=== PATIENT | female | born 1950 | race Caucasian/White ===

== ENCOUNTER → 2016-04-01 | Outpatient (CLI) | payer OTHER ==
[~2016-04-01] MED LIST: ACTOS30 MG PO; ALDOMET500 MG PO; ALPRAZOLAM0.5 MG PO; ASPIR-LOW81 MG PO; ASPIRIN EC325 MG PO; Apresoline PO; BENICAR PO; BYSTOLIC PO; Benicar PO; Bystolic PO; CALCIUM + D3 E1 EACH PO; CALCIUM600 M1 PO; CEFUROXIME250 MG PO; CLEOCIN300 MG PO; CLONIDINE HCL0.1 MG PO; CYANOCOBALAM1000 MCG PO; DOCUSATE SODIU100 MG PO; FUROSEMIDE20 MG PO; GLIPIZIDE XL10 MG PO; GLUCOPHAGE500 MG PO; GLUCOTROL XL10 MG PO; Glucophage PO; HYDROCHLOROTHIA25 MG PO; Hydrodiuril,Oretic,E PO; LEVAQUIN PO; LEVOTHYROXINE112 MCG PO; LEVOTHYROXINE88 MCG PO; LISINOPRIL40 MG PO; Levaquin PO; Levothroid,Synthroid PO; MAALOX ADVANCE355 ML PO; MAGNESIUM GLUCO30 MG PO; MAGNESIUM200 MG PO; MAGNESIUM250 MG PO; METFORMIN HCL500 MG PO; METFORMIN PO; METOPROLOL SUC100 MG PO; METOPROLOL SUCC50 MG PO; MULTIVITAMIN1 EAC2 PO; NATURAL BALANCE15 M1 BOTH EYES; NORCO 5/3251 TABLET PO; OMEPRAZOLE PO; OMEPRAZOLE20 MG PO; OMEPRAZOLE40 M1 PO; PANTOPRAZOLE SO40 MG PO; PLAVIX PO; PLAVIX75 MG PO; PriLOSEC PO; SIMVASTATIN PO; SIMVASTATIN80 MG PO; SYNTHROID PO; TOPROL XL50 MG PO; TUMS500 MG PO; Tums,OsCal PO; XANAX0.5 MG PO; ZESTRIL40 MG PO; ZOCOR80 MG PO; ZOFRAN ODT4 MG PO; Zocor PO
== END | disposition home or self-care (01) ==
LOC: RAD 12:28
DX: C34.90 Malignant neoplasm of unspecified part of unspecified bronchus or lung (principal)
CPT/HCPCS: 71250

== ENCOUNTER 2016-05-08 05:04 | Inpatient (IN) | payer OTHER ==
[~2016-05-08] VITALS: Ht 167.6 cm; Wt 89.7 kg
[2016-05-08 06:12] LABS: CHLORIDE 103 mEq/L (99-109); POTASSIUM 3.3 mEq/L (3.7-5.4); SODIUM 135 mEq/L (136-147)
[2016-05-08 06:14] LABS: GLUCOSE 257 mg/dL (70-99); HEMATOCRIT 24.5 % (36.0-46.0); MCH 28.9 PG (29.0-34.0); MCHC 34.3 G/DL (30.0-36.0); MCV 84.2 FL (83-99); PLATELET COUNT 53 K/uL (156-360); RBC DIS.WIDTH-CV 14.3 % (11.8-14.6); RBC DIS.WIDTH-SD 41.9 % (39-53); RED BLOOD COUNT 2.91 M/uL (3.80-5.20)
[2016-05-08 06:16] LABS: ANION GAP 13 MEQ/L (2-14); TOTAL BILIRUBIN 0.5 mg/dL (0.0-1.0)
[2016-05-08 06:18] LABS: ALKALINE PHOSPHATASE 128 IU/L (3-129); GFR ESTIMATE (CALCULATED) 26 mL/min/
[2016-05-08 06:19] LABS: UREA NITROGEN (BUN) 48 mg/dL (9-23)
[2016-05-08 06:22] LABS: LIPASE 9 U/L (1.0-51.0)
[2016-05-08 13:18] VITALS: BP 126/61
[2016-05-08 16:34] LABS: POINT-OF-CARE METER ID UU13113725
[2016-05-08 16:42] VITALS: BP 98/63
[2016-05-08 18:12] LABS: INTERNAL CONTROL VALID? YES
[2016-05-08 23:06] VITALS: BP 120/58
[2016-05-09 07:24] LABS: ALKALINE PHOSPHATASE 91 IU/L (3-129); ANION GAP 10 MEQ/L (2-14); CHLORIDE 112 MEQ/L (99-109); POTASSIUM 3.6 MEQ/L (3.7-5.4); SAMPLE HEMOLYSIS CHECK 0; SAMPLE ICTERIC CHECK 0; SAMPLE LIPEMIA CHECK 0; SODIUM 140 MEQ/L (136-147); TOTAL BILIRUBIN 0.3 MG/DL (0.0-1.0); UREA NITROGEN (BUN) 34 mg/dL (9-23)
[2016-05-09 07:25] LABS: GFR ESTIMATE (CALCULATED) 43 mL/min/; GLUCOSE 113 mg/dL (70-99)
[2016-05-09 07:41] LABS: HEMATOCRIT 24.3 % (36.0-46.0); MCH 28.6 PG (29.0-34.0); MCHC 33.3 G/DL (30.0-36.0); MCV 86.9 FL (83-99); RBC DIS.WIDTH-CV 14.6 % (11.8-14.6); RBC DIS.WIDTH-SD 46.3 % (39-53); RED BLOOD COUNT 2.83 M/uL (3.80-5.20)
[2016-05-09 07:43] LABS: WHITE BLOOD COUNT 1.2 K/uL (4.1-10.2)
[2016-05-09 08:31] LABS: MEAN PLAT.VOLUME 10.7 uM^3 (9.5-12.4); PLATELET COUNT 46 K/uL (156-360)
[2016-05-09 10:28] VITALS: BP 121/68
[2016-05-09 15:24] VITALS: BP 128/62
[2016-05-09 21:14] LABS: C DIFF TOXIN NEGATIVE (NEGATIVE)
[2016-05-09 21:17] LABS: PROBE CHECK PASS; SPECIMEN PROCESSING CONTROL PASS
[2016-05-09 23:05] VITALS: BP 169/78
[2016-05-10 07:50] VITALS: BP 172/114
[2016-05-10 08:18] LABS: HEMATOCRIT 23.4 % (36.0-46.0); MCH 29.2 PG (29.0-34.0); MCHC 33.8 G/DL (30.0-36.0); MCV 86.3 FL (83-99); MEAN PLAT.VOLUME 10.4 uM^3 (9.5-12.4); PLATELET COUNT 51 K/uL (156-360); RBC DIS.WIDTH-CV 14.6 % (11.8-14.6); RBC DIS.WIDTH-SD 45.7 % (39-53); RED BLOOD COUNT 2.71 M/uL (3.80-5.20)
[2016-05-10 08:36] LABS: ALKALINE PHOSPHATASE 82 IU/L (3-129); ANION GAP 10 MEQ/L (2-14); CHLORIDE 113 MEQ/L (99-109); GFR ESTIMATE (CALCULATED) 43 mL/min/; POTASSIUM 4.2 MEQ/L (3.7-5.4); SAMPLE HEMOLYSIS CHECK 0; SAMPLE ICTERIC CHECK 0; SAMPLE LIPEMIA CHECK 0; SODIUM 138 MEQ/L (136-147); UREA NITROGEN (BUN) 34 mg/dL (9-23)
[2016-05-10 08:37] LABS: GLUCOSE 260 mg/dL (70-99); TOTAL BILIRUBIN 0.4 MG/DL (0.0-1.0)
[2016-05-10 08:46] LABS: WHITE BLOOD COUNT 0.5 K/uL (4.1-10.2)
[2016-05-10 09:44] LABS: HEMATOLOGY COMMENT 1 DIFF ON BUFFY COAT
[2016-05-10 09:48] LABS: ABS NEUTROPHIL COUNT 0.27; EOSINOPHIL ABS CT 0.01; PLAT.SUFFICIENCY DECREASED
[2016-05-10 15:35] VITALS: BP 169/94
[2016-05-11] VITALS (24 sets, daily range): BP systolic 68–165; BP diastolic 37–84
[2016-05-11 07:14] LABS: ALKALINE PHOSPHATASE 66 IU/L (3-129); ANION GAP 13 MEQ/L (2-14); CHLORIDE 117 MEQ/L (99-109); GFR ESTIMATE (CALCULATED) 37 mL/min/; GLUCOSE 293 mg/dL (70-99); POTASSIUM 3.5 MEQ/L (3.7-5.4); SAMPLE HEMOLYSIS CHECK 0; SAMPLE ICTERIC CHECK 0; SAMPLE LIPEMIA CHECK 0; SODIUM 138 MEQ/L (136-147); TOTAL BILIRUBIN 0.4 MG/DL (0.0-1.0); UREA NITROGEN (BUN) 33 mg/dL (9-23)
[2016-05-11 07:24] LABS: CARBOXY HGB 1.6 % (0-5); COMMENTS - BLOOD GASES A+C+; DEVICE NC; METHEMOGLOBIN 1.4 % (0-1.5); O2 FLOW 2 L/MIN; PCO2 < 18 mm Hg (35-45); PO2 83 mm Hg (80-100); SITE LR; pH 7.31 (7.35-7.45)
[2016-05-11 07:25] LABS: TOTAL RESP RATE 40 resp/min
[2016-05-11 07:51] LABS: HEMATOCRIT 21.7 % (36.0-46.0); MCH 28.6 PG (29.0-34.0); MCHC 34.1 G/DL (30.0-36.0); MCV 83.8 FL (83-99); RBC DIS.WIDTH-CV 14.5 % (11.8-14.6); RBC DIS.WIDTH-SD 44.2 % (39-53); RED BLOOD COUNT 2.59 M/uL (3.80-5.20)
[2016-05-11 07:56] LABS: WHITE BLOOD COUNT 0.5 K/uL (4.1-10.2)
[2016-05-11 08:22] LABS: MEAN PLAT.VOLUME 11.4 uM^3 (9.5-12.4); PLATELET COUNT 50 K/uL (156-360)
[2016-05-11 08:39] LABS: ANION GAP 13 MEQ/L (2-14); CHLORIDE 117 MEQ/L (99-109); GFR ESTIMATE (CALCULATED) 34 mL/min/; GLUCOSE 269 mg/dL (70-99); POTASSIUM 3.5 MEQ/L (3.7-5.4); SAMPLE HEMOLYSIS CHECK 0; SAMPLE ICTERIC CHECK 0; SAMPLE LIPEMIA CHECK 0; SODIUM 140 MEQ/L (136-147); UREA NITROGEN (BUN) 33 mg/dL (9-23)
[2016-05-11 08:49] LABS: INTER. NORMALIZED RATIO 1.8; PROTHROMBIN TIME 18.7 (9.2-11.2); PTT 35.6 (25-32)
[2016-05-11 09:10] LABS: ALKALINE PHOSPHATASE 62 IU/L (3-129); DIRECT BILIRUBIN 0.1 mg/dL (0.0-0.3); TOTAL BILIRUBIN 0.4 MG/DL (0.0-1.0)
[2016-05-11 09:31] LABS: HEMATOCRIT 22.2 % (36.0-46.0); MCH 29.1 PG (29.0-34.0); MCHC 34.2 G/DL (30.0-36.0); MCV 85.1 FL (83-99); MEAN PLAT.VOLUME 11.2 uM^3 (9.5-12.4); PLATELET COUNT 51 K/uL (156-360); RBC DIS.WIDTH-CV 14.5 % (11.8-14.6); RBC DIS.WIDTH-SD 45.7 % (39-53); RED BLOOD COUNT 2.61 M/uL (3.80-5.20)
[2016-05-11 09:32] LABS: WHITE BLOOD COUNT 0.4 K/uL (4.1-10.2)
[2016-05-11 09:35] LABS: METH RESISTANT S AUREUS PCR NEGATIVE (NEGATIVE); PROBE CHECK PASS; SPECIMEN PROCESSING CONTROL PASS
[2016-05-11 10:19] LABS: ADD MIUA? YES; BILIRUBIN NEGATIVE; BLOOD SMALL; COLOR YELLOW ((YELLOW)); GLUCOSE (STRIP) >=500; KETONES 5; LEUKOCYTES NEGATIVE; NITRITE NEGATIVE; PROTEIN (STRIP) NEGATIVE; SPECIFIC GRAVITY 1.012 (1.000-1.030); UROBILINOGEN 0.2 MG/DL (0.2-1.0)
[2016-05-11 11:01] LABS: BACTERIA RARE /HPF; EPITHELIAL CELLS RARE /HPF; GRANULAR CASTS 0-5 /LPF; MUCUS TRACE /LPF; RED BLOOD CELLS 0-5 /HPF (0-5); UCUL ADDED? NO; WHITE BLOOD CELLS 0-5 /HPF (0-5)
[2016-05-11] MEDS ORDERED: TUMS ULTRA1000 MG PO (14:28)
[2016-05-11] MEDS ORDERED: VENTOLIN HFA18 GM IH (14:44)
[2016-05-11] MEDS ORDERED: FUROSEMIDE20 MG PO (14:48)
[2016-05-11] MEDS ORDERED: BIOTIN 5000MCG PO (14:49)
[2016-05-11 16:10] LABS: BASE EXCESS -9.9 mEq/L (-3 to +3); BICARBONATE 17.2 mEq/L (22-26); CARBOXY HGB 1.5 % (0-5); COMMENTS - BLOOD GASES A+C+; METHEMOGLOBIN 1.2 % (0-1.5); PCO2 43 mm Hg (35-45); PO2 53 mm Hg (80-100); SITE LRA; pH 7.21 (7.35-7.45)
[2016-05-11 16:11] LABS: DEVICE 840; FI02 50 %; MECHANICAL RATE 18 resp/min; MODE A/C; PEEP 5 CM/H20; TIDAL VOLUME 450 ML; TOTAL RESP RATE 18 resp/min
[2016-05-11 18:58] LABS: TROP-I INTERPRETATION NEGATIVE; TROPONIN-I 0.06 ng/mL (0.0-0.30)
[2016-05-11 19:18] LABS: ANION GAP 14 MEQ/L (2-14); CHLORIDE 114 MEQ/L (99-109); CREATINE KINASE 144 IU/L (1-294); GFR ESTIMATE (CALCULATED) 37 mL/min/; GLUCOSE 154 mg/dL (70-99); SAMPLE HEMOLYSIS CHECK 0; SAMPLE ICTERIC CHECK 0; SAMPLE LIPEMIA CHECK 0; SODIUM 144 MEQ/L (136-147); TOTAL CK 144 IU/L (1-294); UREA NITROGEN (BUN) 29 mg/dL (9-23)
[2016-05-11 19:22] LABS: MAGNESIUM 1.7 mg/dl (1.3-2.7); POTASSIUM 2.6 MEQ/L (3.7-5.4)
[2016-05-11 19:36] LABS: CK-MB 3.9 ng/mL (0.0-4.9)
[2016-05-11 19:58] LABS: HEMATOCRIT 25.5 % (36.0-46.0); MCH 28.9 PG (29.0-34.0); MCHC 34.1 G/DL (30.0-36.0); MCV 84.7 FL (83-99); RBC DIS.WIDTH-CV 14.4 % (11.8-14.6); RBC DIS.WIDTH-SD 44.3 % (39-53); RED BLOOD COUNT 3.01 M/uL (3.80-5.20)
[2016-05-11 19:59] LABS: DELETE MACHINE DIFF? YES
[2016-05-11 20:01] LABS: WHITE BLOOD COUNT 0.4 K/uL (4.1-10.2)
[2016-05-11 20:15] LABS: BASE EXCESS -10.6 mEq/L (-3 to +3); BICARBONATE 16.4 mEq/L (22-26); CARBOXY HGB 1.4 % (0-5); COMMENTS - BLOOD GASES C+; DEVICE VENT; FI02 60 %; MECHANICAL RATE 18 resp/min; METHEMOGLOBIN 1.6 % (0-1.5); MODE A/C; PCO2 40 mm Hg (35-45); PEEP 10 CM/H20; PO2 68 mm Hg (80-100); SITE LR; TIDAL VOLUME 450 ML; TOTAL RESP RATE 19 resp/min; pH 7.22 (7.35-7.45)
[2016-05-11 20:56] LABS: HEMATOLOGY COMMENT 1 REV; MEAN PLAT.VOLUME 11.3 uM^3 (9.5-12.4); PLAT.SUFFICIENCY DECREASED; PLATELET COUNT 41 K/uL (156-360); USER ID BW1
[2016-05-11 21:33] LABS: BASE EXCESS -10.5 mEq/L (-3 to +3); BICARBONATE 15.7 mEq/L (22-26); CARBOXY HGB 1.4 % (0-5); COMMENTS - BLOOD GASES C+; DEVICE VENT; FI02 60 %; MECHANICAL RATE 22 resp/min; METHEMOGLOBIN 1.6 % (0-1.5); MODE A/C; PCO2 35 mm Hg (35-45); PEEP 10 CM/H20; PO2 64 mm Hg (80-100); SITE LR; TIDAL VOLUME 450 ML; TOTAL RESP RATE 24 resp/min; pH 7.26 (7.35-7.45)
[2016-05-11 22:30] LABS: POINT-OF-CARE METER ID UU13113748
[2016-05-12] VITALS (7 sets, daily range): BP systolic 79–157; BP diastolic 59–88
[2016-05-12 01:21] LABS: HEMATOCRIT 29.3 % (36.0-46.0); MCH 28.9 PG (29.0-34.0); MCHC 34.1 G/DL (30.0-36.0); MCV 84.7 FL (83-99); RBC DIS.WIDTH-CV 14.7 % (11.8-14.6); RBC DIS.WIDTH-SD 43.6 % (39-53); RED BLOOD COUNT 3.46 M/uL (3.80-5.20)
[2016-05-12 01:23] LABS: CHLORIDE 113 mEq/L (99-109); POTASSIUM 2.7 mEq/L (3.7-5.4); SODIUM 143 mEq/L (136-147); WHITE BLOOD COUNT 0.3 K/uL (4.1-10.2)
[2016-05-12 01:24] LABS: MAGNESIUM 1.5 mg/dL (1.3-2.7)
[2016-05-12 01:27] LABS: ANION GAP 15 MEQ/L (2-14)
[2016-05-12 01:30] LABS: GFR ESTIMATE (CALCULATED) 34 mL/min/
[2016-05-12 01:31] LABS: UREA NITROGEN (BUN) 32 mg/dL (9-23)
[2016-05-12 01:32] LABS: TROP-I INTERPRETATION NEGATIVE; TROPONIN-I 0.05 ng/mL (0.0-0.30)
[2016-05-12 01:33] LABS: CREATINE KINASE 107 IU/L (1-294); TOTAL CK 107 IU/L (1-294)
[2016-05-12 01:34] LABS: ALKALINE PHOSPHATASE 48 IU/L (3-129); GLUCOSE 259 mg/dL (70-99); TOTAL BILIRUBIN 1.3 mg/dL (0.0-1.0)
[2016-05-12 01:40] LABS: CK-MB 3.2 ng/mL (0.0-4.9)
[2016-05-12 01:41] LABS: PROTHROMBIN TIME 21.3 (9.2-11.2)
[2016-05-12 01:45] LABS: PTT 53.9 (25-32)
[2016-05-12 02:18] LABS: EOSINOPHIL COUNT 0.1 K/uL (0-0.3); HEMATOLOGY COMMENT 1 SMEAR COMPATIBLE; IMMATURE GRANULOCYTE COUNT 0.1 K/uL; LYMPHOCYTE COUNT 0.1 K/uL (1.0-2.8); PLAT.SUFFICIENCY DECREASED
[2016-05-12 02:19] LABS: PLATELET COUNT 27 K/uL (156-360)
[2016-05-12 03:25] LABS: BASE EXCESS -13.3 mEq/L (-3 to +3); BICARBONATE 12.9 mEq/L (22-26); CARBOXY HGB 0.5 % (0-5); METHEMOGLOBIN 1.4 % (0-1.5)
[2016-05-12 03:26] LABS: COMMENTS - BLOOD GASES C+; DEVICE VENT; FI02 100 %; MECHANICAL RATE 24 resp/min; MODE A/C; PCO2 30 mm Hg (35-45); PEEP 10 CM/H20; PO2 163 mm Hg (80-100); SITE LR; TIDAL VOLUME 450 ML; TOTAL RESP RATE 29 resp/min; pH 7.24 (7.35-7.45)
[2016-05-12 04:12] LABS: CHLORIDE 112 mEq/L (99-109); POTASSIUM 3.1 mEq/L (3.7-5.4); SODIUM 146 mEq/L (136-147)
[2016-05-12 04:15] LABS: GLUCOSE 266 mg/dL (70-99); INTER. NORMALIZED RATIO 2.2; PROTHROMBIN TIME 22.8 (9.2-11.2); PTT 45.8 (25-32)
[2016-05-12 04:15] LABS: HEMATOCRIT 28.6 % (36.0-46.0); MCH 28.7 PG (29.0-34.0); MCHC 33.9 G/DL (30.0-36.0); MCV 84.6 FL (83-99); RBC DIS.WIDTH-CV 14.7 % (11.8-14.6); RBC DIS.WIDTH-SD 44.3 % (39-53); RED BLOOD COUNT 3.38 M/uL (3.80-5.20)
[2016-05-12 04:16] LABS: ANION GAP 21 MEQ/L (2-14)
[2016-05-12 04:16] LABS: WHITE BLOOD COUNT 0.5 K/uL (4.1-10.2)
[2016-05-12 04:18] LABS: ALKALINE PHOSPHATASE 48 IU/L (3-129); GFR ESTIMATE (CALCULATED) 32 mL/min/
[2016-05-12 04:19] LABS: UREA NITROGEN (BUN) 33 mg/dL (9-23)
[2016-05-12 05:23] LABS: HEMATOLOGY COMMENT 1 SMEAR COMPATIBLE; PLATELET COUNT 22 K/uL (156-360)
[2016-05-12 06:50] LABS: POINT-OF-CARE METER ID UU13113803
== END 2016-05-12 10:20 | DRG 208 ==
LOC: EME → EDBD 05:04 → EDSEX 05:04 → 5EAST 08:39 → EDOF 08:39 → 4WEST 08:39 → EDOF 09:02 → 5EAST 13:07 → 4WEST 05-11 07:50
PROVIDERS: Hospitalist; Internal Medicine; Internal Medicine Nephrology; Obstetrics & Gynecology
PROC: 30233N1 Transfusion of Nonautologous Red Blood Cells into Peripheral Vein, Percutaneous Approach (ICD-10-PCS; principal; 2016-05-11)
PROC: 5A1935Z Respiratory Ventilation, Less than 24 Consecutive Hours (ICD-10-PCS; principal; 2016-05-11)
PROC: 05HM33Z Insertion of Infusion Device into Right Internal Jugular Vein, Percutaneous Approach (ICD-10-PCS; principal; 2016-05-11)
PROC: 0BH17EZ Insertion of Endotracheal Airway into Trachea, Via Natural or Artificial Opening (ICD-10-PCS; principal; 2016-05-11)
PROC: 5A2204Z Restoration of Cardiac Rhythm, Single (ICD-10-PCS; 2016-05-12)
PROC: 5A12012 Performance of Cardiac Output, Single, Manual (ICD-10-PCS; 2016-05-12)
DX: J96.00 Acute respiratory failure, unspecified whether with hypoxia or hypercapnia (principal); A41.9 Sepsis, unspecified organism; C78.00 Secondary malignant neoplasm of unspecified lung; D61.810 Antineoplastic chemotherapy induced pancytopenia; N17.9 Acute kidney failure, unspecified; D68.9 Coagulation defect, unspecified; D70.9 Neutropenia, unspecified; R57.1 Hypovolemic shock; I46.9 Cardiac arrest, cause unspecified; E87.2 Acidosis; E11.22 Type 2 diabetes mellitus with diabetic chronic kidney disease; E87.6 Hypokalemia; E83.42 Hypomagnesemia; E78.5 Hyperlipidemia, unspecified; E83.39 Other disorders of phosphorus metabolism; D69.6 Thrombocytopenia, unspecified; E03.9 Hypothyroidism, unspecified; I12.9 Hypertensive chronic kidney disease with stage 1 through stage 4 chronic kidney disease, or unspecified chronic kidney disease; K21.9 Gastro-esophageal reflux disease without esophagitis; N18.9 Chronic kidney disease, unspecified; I25.10 Atherosclerotic heart disease of native coronary artery without angina pectoris; D63.1 Anemia in chronic kidney disease; E83.51 Hypocalcemia; Z79.899 Other long term (current) drug therapy; C76.0 Malignant neoplasm of head, face and neck; E66.9 Obesity, unspecified; Z87.891 Personal history of nicotine dependence; Z96.651 Presence of right artificial knee joint; Z90.49 Acquired absence of other specified parts of digestive tract
CPT/HCPCS: 36600; 71010; 74000; 80048 91; 80053; 80076; 81003; 82330; 82550; 82550 91; 82553; 82570; 82803; 82948; 83605; 83630; 83690; 83735; 83880; 84100; 84156; 84300; 84484; 85007; 85009; 85025; 85025 91; 85027; 85610; 85730; 86850; 86900; 86901; 86920; 87040; 87070; 87077; 87086; 87177; 87186; 87205; 87329; 87493; 87506; 87641; 93005; 94002; 94640; 94640 76; 99202; 99281; 99285; J0610; J1160; J1447; J1644; J1720; J1815; J1940; J2405; J2543; J2704; J3010; J3370; J3475; J3480; J7030; J7040; J7050; J7070; J7120; P9016; P9045; Q0169; S0028; S0030